=== PATIENT | female | born 1955 | race Caucasian/White ===

== ENCOUNTER → 2016-05-14 | Outpatient (CLI) | payer BC ==
[~2016-05-14] MED LIST: CALC-51 PO; HYDR-5688 PO; MULT-884 PO
== END | disposition home or self-care (01) ==
LOC: C.RDSM 13:45
PROVIDERS: ATTEND Physical Medicine & Rehabilitation Sports Medicine
DX: M25.561 Pain in right knee (principal)

== ENCOUNTER → 2016-07-16 | Outpatient (CLI) | payer BC ==
[~2016-07-16] MED LIST changes: +OXYC-57 PO
== END | disposition home or self-care (01) ==
LOC: C.RDSM 13:33
PROVIDERS: ATTEND Physical Medicine & Rehabilitation Sports Medicine
DX: M25.562 Pain in left knee (principal)

== ENCOUNTER → 2016-09-11 | Outpatient (CLI) | payer BC ==
[~2016-09-11] MED LIST changes: -OXYC-57 PO
[2016-09-11 13:24] LABS: BASO % 0.6 %; BASO ABS # 0.05 K/uL (0-0.2); COMPLETE YES; EOS % 1.5 %; HEMATOCRIT 38.6 % (37-47); IG% 0.3 %; LYMPH % 26.3 %; LYMPH ABS # 2.04 K/uL (1.2-3.4); MEAN CELL VOLUME 92.6 fL (80-100); MEAN CORPUSCULAR HEMOGLOBIN 30.7 pg (25-34); MEAN CORPUSCULAR HGB CONC 33.2 g/dl (32-36); MONO % 9.7 %; NEUT % 61.6 %; PLATELET COUNT 283 K/uL (130-400); RED BLOOD COUNT 4.17 M/uL (4.2-5.4); WHITE BLOOD COUNT 7.77 K/uL (4.8-10.8)
[2016-09-11 14:05] LABS: BLOOD UREA NITROGEN 13 mg/dl (7-18); BUN/CREATININE RATIO 19.7 (10-20); CALCIUM 9.4 mg/dl (8.5-10.1); CARBON DIOXIDE 29 mmol/L (21-32); CHLORIDE 109 mmol/L (98-107); CREATININE 0.68 mg/dl (0.60-1.20); GLUCOSE 83 mg/dl (70-99); SODIUM 141 mmol/L (136-145)
== END | disposition home or self-care (01) ==
LOC: C.CPL 11:20
PROVIDERS: ATTEND Orthopaedic Surgery
DX: Z01.818 Encounter for other preprocedural examination (principal); M25.562 Pain in left knee

== ENCOUNTER → 2016-10-10 | Day surgery (SDC) | payer BC ==
[2016-09-17 08:52] VITALS: Ht 170.2 cm; Wt 84.1 kg
[~2016-10-10] VITALS: Ht 170.2 cm; Wt 84.1 kg
[~2016-10-10] MED LIST changes: +ATROPINE SULFATE 0.1 MG/ML 5ML SYR IV PRN; +CEFAZOLIN 2000 MG/60 ML D5W IV SCH; +DEXAMETHASONE SOD INJ 4 MG/ML VIAL ONE; +EpHEDrine SULFATE INJ 50 MG/ML AMP IV PRN; +EpINEphrine INJ 1MG/ML AMP 1 MG/ML AMP ONE; +FENTANYL CITRATE INJ 50 MCG/1 ML 2 ML VIAL IV PRN; +FENTANYL CITRATE INJ 50 MCG/1 ML 2 ML VIAL ONE; +HYDROCODONE/ACETAMOPHEN 5/325MG TAB ONE; +HYDROCODONE/ACETAMOPHEN 5/325MG TAB PO PRN; +HYDROmorphone INJ 1 MG/ML SYR IV PRN; +KETOROLAC TROMETHAMINE 30 MG/ML VIAL ONE; +LACTATED RINGER'S 1000ML 1,000 ML IV SCH; +LIDOCAINE HCL 2% 2 ML VIAL (20MG/ML) ONE; +MIDAZOLAM HCL 1 MG/ML 2ML VIAL ONE; +ONDANSETRON INJ 2 MG/ML 2 ML VIAL IV PRN; +ONDANSETRON INJ 2 MG/ML 2 ML VIAL ONE; +PROMETHAZINE HCL INJ 12.5 MG in SODIUM CHLORIDE 0.9% 50ML 50 ML IV PRN; +PROMETHAZINE HCL INJ 6.25 MG in SODIUM CHLORIDE 0.9% 50ML 50 ML IV PRN; +PROPOFOL IV EMULSION 10 MG/ML 20 ML VIAL IV ONE; +ROPIVACAINE 0.5% 5 MG/ML 30 ML VIAL ONE; +SODIUM CHLORIDE 0.9% 1000ML 1,000 ML IV SCH
--- NOTE | 2016-10-10 06:49 | History & Physical Bridge - [place] ---
H&P Re-Evaluation Bridge Note: I have examined the patient, reviewed the History & Physical and in the interval since the performance of the History & Physical I have noted the following changes of clinical significance: No changes noted
--- NOTE | 2016-10-10 08:51 | Discharge Instructions-SurgCtr ---
Discharge Instructions Date of Service Oct 10, 2016. Visit Reason for Visit: Left Knee Acute Medial Meniscal Tear Discharge Discharge Diagnosis / Problem: SAME ABOVE Discharge Goals Goal(s): Decrease discomfort, Improve function Activity Recommendations Activity Limitations: as noted below Lifting Limitations: gradually increase as tolerated Exercise/Sports Limitations: gradually increase as tolerated Shower/Bathe: tomorrow Anesthesia . Post Anesthesia Instructions: If you have had General Anesthesia or IV Sedation: * Do not drive today. * Resume driving when surgeon permits. * Do not make important decisions or sign legal documents today. * Call surgeon for: 1. Temperature elevations greater than 101 degrees F. 2. Uncontrollable pain. 3. Excessive bleeding. 4. Persistent nausea and vomiting. 5. Medication intolerance (nausea, vomiting or rash). * For nausea and vomiting use only clear liquids such as: tea, soda, bouillon until nausea subsides, then gradually increase diet as tolerated. * If you have any concerns or questions, call your surgeon's office. If physician is unavailable and it is an emergency, call 911 or go to the nearest emergency room. . Instructions / Follow-Up Instructions / Follow-Up MEDICATIONS: * Resume previous medications unless instructed otherwise by your surgeon. * Always take pain medication on a full stomach or with food to avoid upset stomach. * Do not drink alcohol or drive while taking narcotics. * Ibuprofen or Tylenol may be taken if narcotic not needed. SPECIAL CARE INSTRUCTIONS: __ None _X_ Keep extremity elevated and iced x 48 hours; apply ice 20-30 minutes 8-10 times/day. May remove at night. _X_ Crutches _X_ May discard when able __ Brace/Post-op shoe __ 24 hrs/day __ Remove at night _X_ Dressing __ Maintain until seen in office, may shower with plastic over site _X_ Remove dressings in 24-48 hours and then may shower _X_ Cover incisions with band-aids after showering __ Do not remove steri-strips Call physician if chills or temperature rises above 102 degrees or pain unrelieved by prescribed pain medications. Office [phone] Diet Recommendations Home Diet: no limitations Procedures Procedures Performed: Left Knee Arthroscopy With Partial Medial Meniscectomy, Chondroplasty Pending Studies Studies pending at discharge: no Work Instructions Return To Work: after follow-up Medical Emergencies . Who to Call and When: Medical Emergencies: If at any time you feel your situation is an emergency, please call 911 immediately. . Non-Emergent Contact Non-Emergency issues call your: Primary Care Provider Call Non-Emergent contact if: you have a fever, temperature is above 101.5 . . "Provider Documentation" section prepared by Olvin Fishman. .
--- NOTE | 2016-10-10 09:16 | OPERATIVE REPORT ---
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 POSTOPERATIVE DIAGNOSIS: Same. PROCEDURE: Left knee diagnostic arthroscopy with chondroplasty and partial medial meniscectomy. SURGEON: Dr. Patrick Sellers. HOLD WORKER: Shane Fishman PA-C, whose assistance was necessary for positioning of the leg and helping with instrumentation. ANESTHESIA: General. COMPLICATIONS: None. CONDITION: Stable to PACU. INDICATIONS: Alicia is a pleasant 60-year-old female who presented to my office with complaints of medial sided left knee pain. X-rays did not look bad. MRI showed some chondromalacia and a medial meniscus tear. After failing conservative treatment, she elected to undergo arthroscopy. OPERATION AND FINDINGS: On 10/10/2016, she arrived at [facility] for the above procedure. She was seen in the preoperative holding area and the operative extremity was identified and signed. She was given a preoperative antibiotic, taken back to the operating room, laid on the table in supine position and put under general anesthesia. The left knee was then prepped and draped in sterile fashion. Time-out was done and the patient and operative extremity was properly identified. A scope was introduced into a lateral parapatellar portal. Diagnostic arthroscopy showed no cartilage damage within the trochlea. There was a lot of synovitis in the suprapatellar pouch. No loose bodies. The scope was brought into the medial compartment and a medial parapatellar portal was made under direct visualization. There was a lot of synovitis in the anterior fat pad. There was some grade 2 and grade 3 chondral changes throughout the distal medial femoral condyle. There was a small radial tear in the posterior aspect of the medial meniscus. A shaver was used to debride the unstable portions of the meniscus tear back to stable margins. A shaver was also used to remove any unstable pieces of cartilage and complete a chondroplasty of the distal medial femoral condyle. The red synovitis was removed. Scope was brought into the trochlea. ACL and PCL were intact. The scope was then brought into the lateral compartment and there was no meniscus damage or cartilage damage laterally. The scope was then placed in the medial parapatellar portal. Repeat diagnostic arthroscopy showed no additional pathology. A shaver was used to remove any excess debris. The knee was then irrigated and arthroscopic instrument removed. Portal sites were closed with 3-0 nylon. She was then given an injection of 30 mL of Naropin with epinephrine and Toradol. She was then placed in a soft compressive dressing, extubated, transferred to a [facility] and taken to the postanesthesia care unit in stable condition. She tolerated the procedure well. I attest to the content of the Intraoperative Record and any orders documented therein. Any exception s are noted below.
[2016-10-10 09:38] VITALS: TEMP 36.6
[2016-10-10 10:06] VITALS: BP 140/84; PULSE 65; O2SAT 97
--- NOTE | 2016-10-10 10:11 | Anesthesia Progress Nt - [facility] ---
Anesthesia Post Op Note Date & Time Oct 10, 2016 at 10:11 Vital Signs Pain Intensity: 3.0 Vital Signs Past 12 Hours Date Time Temp Pulse Resp B/P (MAP) Pulse Ox O2 Delivery O2 Flow Rate FiO2 10/10/16 10:06 65 140/84 (102) 97 Room Air 10/10/16 09:38 36.6 73 133/70 (91) 98 Room Air 10/10/16 09:24 36.4 74 20 10/10/16 09:24 74 20 95 10/10/16 09:20 153/85 10/10/16 09:19 77 12 10/10/16 09:19 77 12 96 10/10/16 09:16 132/108 10/10/16 09:14 86 15 10/10/16 09:14 85 15 95 10/10/16 09:11 133/83 10/10/16 09:09 80 13 10/10/16 09:09 79 13 94 10/10/16 09:05 141/79 10/10/16 09:04 83 19 100 10/10/16 09:04 90 19 10/10/16 09:00 134/82 10/10/16 08:59 88 12 10/10/16 08:59 87 12 99 10/10/16 08:55 128/82 10/10/16 08:54 88 14 99 10/10/16 08:54 90 14 10/10/16 08:50 120/67 10/10/16 08:50 36.8 12 120/67 96 Mask 6 10/10/16 07:33 36.8 71 22 135/84 (101) 95 Room Air Notes Mental Status: alert / awake / arousable, participated in evaluation Pt Amnestic to Procedure: Yes Nausea / Vomiting: adequately controlled Pain: adequately controlled Airway Patency, RR, SpO2: stable & adequate BP & HR: stable & adequate Hydration State: stable & adequate Anesthetic Complications: no major complications apparent
--- NOTE | 2016-10-10 12:44 | [facility] Post Operative Brief Note ---
Immediate Operative Summary Operative Date Oct 10, 2016. Pre-Operative Diagnosis Left Knee Acute Medial Meniscal Tear Post-Operative Diagnosis Same Procedure(s) Performed Left Knee Arthroscopy With Partial Medial Meniscectomy, Chondroplasty Surgeon Dr. Sellers Drilling Supervisor Surgeon(s) MISTI Salomon Estimated Blood Loss 5ml Findings as above Specimens None Complication(s) None Disposition Recovery Room / PACU
== END | disposition home or self-care (01) ==
LOC: X.SURG 07:18
PROVIDERS: ATTEND Orthopaedic Surgery
DX: S83.207A Unspecified tear of unspecified meniscus, current injury, left knee, initial encounter (principal); Z90.710 Acquired absence of both cervix and uterus; Z90.89 Acquired absence of other organs; Z90.49 Acquired absence of other specified parts of digestive tract; Z96.649 Presence of unspecified artificial hip joint; X58.XXXA Exposure to other specified factors, initial encounter

== ENCOUNTER → 2016-11-19 | Outpatient (CLI) | payer BC ==
[~2016-11-19] MED LIST changes: -ATROPINE SULFATE 0.1 MG/ML 5ML SYR IV PRN; -CEFAZOLIN 2000 MG/60 ML D5W IV SCH; -DEXAMETHASONE SOD INJ 4 MG/ML VIAL ONE; -EpHEDrine SULFATE INJ 50 MG/ML AMP IV PRN; -EpINEphrine INJ 1MG/ML AMP 1 MG/ML AMP ONE; -FENTANYL CITRATE INJ 50 MCG/1 ML 2 ML VIAL IV PRN; -FENTANYL CITRATE INJ 50 MCG/1 ML 2 ML VIAL ONE; -HYDROCODONE/ACETAMOPHEN 5/325MG TAB ONE; -HYDROCODONE/ACETAMOPHEN 5/325MG TAB PO PRN; -HYDROmorphone INJ 1 MG/ML SYR IV PRN; -KETOROLAC TROMETHAMINE 30 MG/ML VIAL ONE; -LACTATED RINGER'S 1000ML 1,000 ML IV SCH; -LIDOCAINE HCL 2% 2 ML VIAL (20MG/ML) ONE; -MIDAZOLAM HCL 1 MG/ML 2ML VIAL ONE; -ONDANSETRON INJ 2 MG/ML 2 ML VIAL IV PRN; -ONDANSETRON INJ 2 MG/ML 2 ML VIAL ONE; -PROMETHAZINE HCL INJ 12.5 MG in SODIUM CHLORIDE 0.9% 50ML 50 ML IV PRN; -PROMETHAZINE HCL INJ 6.25 MG in SODIUM CHLORIDE 0.9% 50ML 50 ML IV PRN; -PROPOFOL IV EMULSION 10 MG/ML 20 ML VIAL IV ONE; -ROPIVACAINE 0.5% 5 MG/ML 30 ML VIAL ONE; -SODIUM CHLORIDE 0.9% 1000ML 1,000 ML IV SCH
[2016-11-19 13:35] LABS: BASO % 0.6 %; BASO ABS # 0.05 K/uL (0-0.2); COMPLETE YES; EOS % 2.8 %; HEMATOCRIT 42.1 % (37-47); IG% 0.4 %; LYMPH % 24.1 %; MEAN CELL VOLUME 94.4 fL (80-100); MEAN CORPUSCULAR HEMOGLOBIN 29.6 pg (25-34); MEAN CORPUSCULAR HGB CONC 31.4 g/dl (32-36); MEAN PLATELET VOLUME 10.5 fL (7.4-10.4); MONO % 9.9 %; NEUT % 62.2 %; PLATELET COUNT 305 K/uL (130-400); RED BLOOD COUNT 4.46 M/uL (4.2-5.4); WHITE BLOOD COUNT 7.88 K/uL (4.8-10.8)
[2016-11-19 13:57] LABS: BLOOD UREA NITROGEN 11 mg/dl (7-18); BUN/CREATININE RATIO 14.8 (10-20); CALCIUM 9.1 mg/dl (8.5-10.1); CARBON DIOXIDE 28 mmol/L (21-32); CHLORIDE 107 mmol/L (98-107); CREATININE 0.71 mg/dl (0.60-1.20); GLUCOSE 92 mg/dl (70-99); POTASSIUM 4.1 mmol/L (3.5-5.1); SODIUM 141 mmol/L (136-145)
== END | disposition home or self-care (01) ==
LOC: C.LABBC 09:31
PROVIDERS: ATTEND Orthopaedic Surgery
DX: S83.242D Other tear of medial meniscus, current injury, left knee, subsequent encounter (principal); X58.XXXD Exposure to other specified factors, subsequent encounter

== ENCOUNTER → 2016-12-05 | Day surgery (SDC) | payer BC ==
[2016-11-26 11:44] VITALS: Ht 170.2 cm; Wt 84.1 kg
[~2016-12-05] VITALS: Ht 170.2 cm; Wt 84.1 kg
[~2016-12-05] MED LIST changes: +ATROPINE SULFATE 0.1 MG/ML 5ML SYR IV PRN; +DEXAMETHASONE SOD INJ 4 MG/ML VIAL ONE; +EpHEDrine SULFATE INJ 50 MG/ML AMP IV PRN; +EpINEphrine INJ 1MG/ML AMP 1 MG/ML AMP ONE; +FENTANYL CITRATE INJ 50 MCG/1 ML 2 ML VIAL IV PRN; +FENTANYL CITRATE INJ 50 MCG/1 ML 2 ML VIAL ONE; -HYDR-5688 PO; +HYDROmorphone INJ 1 MG/ML SYR IV PRN; +KETOROLAC TROMETHAMINE 30 MG/ML VIAL IV. PRN; +KETOROLAC TROMETHAMINE 30 MG/ML VIAL ONE; +LACTATED RINGER'S 1000ML 1,000 ML IV SCH; +LIDOCAINE HCL 2% 2 ML VIAL (20MG/ML) ONE; +MIDAZOLAM HCL 1 MG/ML 2ML VIAL ONE; +ONDANSETRON INJ 2 MG/ML 2 ML VIAL IV PRN; +ONDANSETRON INJ 2 MG/ML 2 ML VIAL ONE; +OXYC-57 PO; +OXYCODONE/ACETAMINOPHEN 5-325 TAB PO PRN; +PROMETHAZINE HCL INJ 12.5 MG in SODIUM CHLORIDE 0.9% 50ML 50 ML IV PRN; +PROPOFOL IV EMULSION 10 MG/ML 20 ML VIAL IV ONE; +ROPIVACAINE 0.5% 5 MG/ML 30 ML VIAL ONE; +SODIUM CHLORIDE 0.9% 1000ML 1,000 ML IV SCH
[2016-12-05] MEDS: CEFAZOLIN 2000MG IV PUSH 10 ML IV SCH (07:26)
--- NOTE | 2016-12-05 08:04 | Discharge Instructions-SurgCtr ---
Discharge Instructions Date of Service Dec 05, 2016. Visit Reason for Visit: Right Knee Acute Medial Meniscal Tear, Pain Discharge Discharge Diagnosis / Problem: SAME ABOVE Discharge Goals Goal(s): Decrease discomfort, Improve function Activity Recommendations Activity Limitations: as noted below Lifting Limitations: gradually increase as tolerated Exercise/Sports Limitations: gradually increase as tolerated Shower/Bathe: tomorrow Driving or Machine Use: resume 1 day after discharge Anesthesia . Post Anesthesia Instructions: If you have had General Anesthesia or IV Sedation: * Do not drive today. * Resume driving when surgeon permits. * Do not make important decisions or sign legal documents today. * Call surgeon for: 1. Temperature elevations greater than 101 degrees F. 2. Uncontrollable pain. 3. Excessive bleeding. 4. Persistent nausea and vomiting. 5. Medication intolerance (nausea, vomiting or rash). * For nausea and vomiting use only clear liquids such as: tea, soda, bouillon until nausea subsides, then gradually increase diet as tolerated. * If you have any concerns or questions, call your surgeon's office. If physician is unavailable and it is an emergency, call 911 or go to the nearest emergency room. . Instructions / Follow-Up Instructions / Follow-Up MEDICATIONS: * Resume previous medications unless instructed otherwise by your surgeon. * Always take pain medication on a full stomach or with food to avoid upset stomach. * Do not drink alcohol or drive while taking narcotics. * Ibuprofen or Tylenol may be taken if narcotic not needed. SPECIAL CARE INSTRUCTIONS: __ None _X_ Keep extremity elevated and iced x 48 hours; apply ice 20-30 minutes 8-10 times/day. May remove at night. _X_ Crutches _X_ May discard when able __ Brace/Post-op shoe __ 24 hrs/day __ Remove at night _X_ Dressing __ Maintain until seen in office, may shower with plastic over site _X_ Remove dressings in 24-48 hours and then may shower _X_ Cover incisions with band-aids after showering __ Do not remove steri-strips Call physician if chills or temperature rises above 102 degrees or pain unrelieved by prescribed pain medications. Office [phone] Diet Recommendations Home Diet: no limitations Fluid Restriction: None Procedures Procedures Performed: Right Knee Arthroscopy, Partial Medial Meniscectomy, Chondroplasty Pending Studies Studies pending at discharge: no Work Instructions Return To Work: after follow-up Medical Emergencies . Who to Call and When: Medical Emergencies: If at any time you feel your situation is an emergency, please call 911 immediately. . Non-Emergent Contact Non-Emergency issues call your: Primary Care Provider Call Non-Emergent contact if: you have a fever, temperature is above 101.5 . . "Provider Documentation" section prepared by Olvin Fishman. .
--- NOTE | 2016-12-05 08:20 | OPERATIVE REPORT ---
DATE OF OPERATION: 12/05/2016 PREOPERATIVE DIAGNOSIS: Displaced medial meniscal tear and chondromalacia of the right knee. POSTOPERATIVE DIAGNOSIS: Displaced medial meniscal tear with chondromalacia of the medial femoral condyle and small posterior lateral meniscal tear. PROCEDURE: Right knee diagnostic arthroscopy with limited synovectomy, chondroplasty and partial medial and lateral meniscectomy. SURGEON: Patrick Sellers DO COURT CLERK: Olvin Fishman PA-C, whose assistance was necessary for positioning of the knee and helping with instrumentation and closure. ANESTHESIA: General. COMPLICATIONS: None. CONDITION: Stable to PACU. INDICATIONS: Alicia is a pleasant 61-year-old female who presented to my office initially with bilateral knee pain. Eight weeks ago I did a synovectomy and small medial meniscectomy of her left knee and she did very well with that. Unfortunately, she was having a lot of pain of her right knee. MRI and clinical examination were diagnostic mostly for a displaced medial meniscal tear and chondromalacia. After failing conservative treatment, she elected to undergo arthroscopy. OPERATION AND FINDINGS: On 12/05/2016, she arrived at [facility] for the above procedure. She was seen in the preoperative holding area and the operative extremity was identified and signed. She was given a preoperative antibiotic and taken back to the operating room, laid on the table in supine position and put under general anesthesia. The right knee was then prepped and draped in sterile fashion. Time-out was done and the patient and operative extremity was properly identified. A scope was introduced in the lateral parapatellar portal. Diagnostic arthroscopy showed no loose bodies in the suprapatellar pouch. There was a lot of synovitis. There was some inflamed fat pad impinged in the patellofemoral joint. There was no arthritis in the patellofemoral joint. The scope was brought into the medial compartment. There was a lot of synovitis and some chondromalacia on the distal medial femoral condyle. There was a flipped medial meniscal tear on the medial aspect of the meniscus that was flipped up on to itself. A medial parapatellar portal was made. A probe was used to probe the meniscus and a shaver was used to remove the unstable portions of the meniscus back to stable margins. There was also a cleavage tear of the posterior aspect of the meniscus and a biter was used to remove the lower unstable fragment. A shaver was used to make sure the meniscus was nice and smooth and stable. A chondroplasty was then done of the femoral condyle to remove all loose cartilage fragments. Time was then spent doing a synovectomy removing the inflamed synovial tissue both anteriorly and a minimal portion of the fat pad, only the portion that seemed like it was getting impingement within the patellofemoral joint. The scope was then brought into lateral compartment. The majority of the compartment looked good. There was no cartilage damage; however, there was tearing of the posterior aspect of the lateral meniscus. A shaver was used to remove the small lateral meniscal tear and take that back to stable margins. Multiple pictures were taken. ACL and PCL were intact. The scope was then placed in the medial parapatellar portal. Repeat diagnostic arthroscopy showed no additional pathology. The knee was then irrigated and arthroscopic instruments were removed. Portal sites were closed with 3-0 nylon. She was then given an injection of 30 mL of ropivacaine with Toradol. She was then placed in a soft compressive dressing, extubated, transferred to a [facility] and taken to the postanesthesia care unit in stable condition. She tolerated the procedure well. I attest to the content of the Intraoperative Record and any orders documented therein. Any exception s are noted below.
[2016-12-05 08:46] VITALS: TEMP 36.4
[2016-12-05 09:17] VITALS: BP 163/83; PULSE 65; O2SAT 96
--- NOTE | 2016-12-05 09:35 | Anesthesia Progress Nt - [facility] ---
Anesthesia Post Op Note Date & Time Dec 05, 2016 at 09:34 Vital Signs Pain Intensity: 2 Vital Signs Past 12 Hours Date Time Temp Pulse Resp B/P (MAP) Pulse Ox O2 Delivery O2 Flow Rate FiO2 12/05/16 09:17 65 16 163/83 (109) 96 Room Air 12/05/16 08:46 36.4 61 16 163/82 (109) 99 Room Air 12/05/16 08:36 36.4 166/81 12/05/16 08:35 65 16 99 12/05/16 08:35 65 16 12/05/16 08:30 70 16 12/05/16 08:30 70 16 98 12/05/16 08:26 133/56 12/05/16 08:25 59 15 12/05/16 08:25 58 15 100 12/05/16 08:21 123/95 12/05/16 08:20 66 11 100 12/05/16 08:20 65 11 12/05/16 08:16 99/47 12/05/16 08:15 69 16 12/05/16 08:15 68 16 100 12/05/16 08:11 93/62 12/05/16 08:10 70 13 98 12/05/16 08:10 71 13 12/05/16 08:06 36.2 72 16 118/54 96 Room Air 12/05/16 08:06 118/54 12/05/16 08:05 74 95 12/05/16 08:05 74 12/05/16 06:30 36.6 71 18 139/85 (103) 96 Room Air Notes Mental Status: alert / awake / arousable, participated in evaluation Pt Amnestic to Procedure: Yes Nausea / Vomiting: adequately controlled Pain: adequately controlled Airway Patency, RR, SpO2: stable & adequate BP & HR: stable & adequate Hydration State: stable & adequate Anesthetic Complications: no major complications apparent Doing well. Pain controlled, VSS. Ready for d/c
--- NOTE | 2016-12-05 13:44 | [facility] Post Operative Brief Note ---
Immediate Operative Summary Operative Date Dec 05, 2016. Pre-Operative Diagnosis Right Knee Partial Medial Tear Post-Operative Diagnosis Same Procedure(s) Performed Right Knee Arthroscopy, Partial Medial Meniscectomy, Chondroplasty Surgeon Dr. Sellers Monorail Hooker Surgeon(s) Carloz Fishman PA-C Estimated Blood Loss 5 ml Findings as above Specimens None Complication(s) None Disposition Recovery Room / PACU
--- NOTE | 2016-12-11 06:18 | EDITING REQUIRED CODING QUERY ---
MENISCUS TEAR To promote full compliance with coding requirements relating to patient care physician participation is requested in all cases of capsule filling machine operator uncertainty. Please assist us with the question(s) below: Please specify the type of Meniscus Tear by placing an "X" within the parenthesis (). If other please document type. (X ) Current Injury ( ) Old Injury ( ) Other: (Please Specify) Thank you Lois Andrews
== END | disposition home or self-care (01) ==
LOC: X.SURG 06:18
PROVIDERS: ATTEND Orthopaedic Surgery
DX: S83.241A Other tear of medial meniscus, current injury, right knee, initial encounter (principal); M94.261 Chondromalacia, right knee; S83.281A Other tear of lateral meniscus, current injury, right knee, initial encounter; X58.XXXA Exposure to other specified factors, initial encounter; Z98.890 Other specified postprocedural states; Z98.818 Other dental procedure status; Z90.710 Acquired absence of both cervix and uterus; Z90.49 Acquired absence of other specified parts of digestive tract; Z90.89 Acquired absence of other organs; Z88.2 Allergy status to sulfonamides; Z68.29 Body mass index [BMI] 29.0-29.9, adult